=== PATIENT | male | born 1990 | race Caucasian/White ===

== ENCOUNTER 2021-04-10 10:25 | Emergency (ER) | payer OTHER, SELFPAY ==
[2021-04-10 10:36] VITALS: BP 138/84; PULSE 111; RESP 18; TEMP 36.9; O2SAT 95; BMI 28.5
[2021-04-10] MEDS: PROPARACAINE 0.5% OPHTH SOL 1 DROPS EYE-LEFT (10:44)
[2021-04-10] MEDS: FLUORESCEIN 1 MG STRIP EYE-BOTH (10:45)
--- NOTE | 2021-04-10 10:56 | ED_ITS ---
HPI - General Adult General Chief complaint: Eye Problems Stated complaint: left eye has something in it Time Seen by Provider: 04/10/21 10:35 Source: patient Mode of arrival: Ambulatory Limitations: no limitations History of Present Illness HPI narrative: Patient is a 31-year-old male. Does wear corrective lenses. No prior history of PRK or LASIk here for evaluation of irritation to his left eye. [place] was wearing his corrective lenses [place] had a sudden sensation of something in his left eye. He did try to irrigate it but still has irritation. No vision changes. He feels like there is something in the upper portion of his thigh. Related Data Previous Rx's Medication Instructions Recorded erythromycin 0.5 inch EYE-LEFT TID #3.5 g 04/10/21 Allergies Allergy/AdvReac Type Severity Reaction Status Date / Time amoxicillin [From Augmentin] Allergy Intermediate Hives Verified 04/10/21 10:36 cefaclor [From Ceclor] Allergy Intermediate Hives Verified 04/10/21 10:36 cefixime [From Suprax] Allergy Intermediate Hives Verified 04/10/21 10:36 clavulanic acid Allergy Intermediate Hives Verified 04/10/21 10:36 [From Augmentin] Review of Systems Constitutional Constitutional: Reports system reviewed and no additional complaints, except as documented Eyes Comments: Irritation and foreign body to left eye ENT Ears, Nose, Mouth, and Throat: Reports system reviewed and no additional complaints, except as documented Integumentary/Breasts Skin/Breast: Reports system reviewed and no additional complaints, except as documented Hematologic/Lymphatic Hematologic/Lymphatic: Reports system reviewed and no additional complaints, except as documented Patient History Medical History Healthy adult Social History Smoking Status: Never smoker Smoking Status: Never smoker alcohol intake frequency: 3 or more drinks per day Alcohol type: beer, wine and hard liquor Substance Use Type: does not use Exam Initial Vital Signs Initial Vital Signs: Vital Signs Temperature 98.4 F 04/10/21 10:36 Pulse Rate 111 H 04/10/21 10:36 Respiratory Rate 18 04/10/21 10:36 Blood Pressure 138/84 04/10/21 10:36 Pulse Oximetry 95 04/10/21 10:36 Const General: cooperative and comfortable Limitations: mental status not altered HENMT Head: normal to inspection and normocephalic Ears: hearing grossly normal bilaterally Nose: external nose normal Face and sinus: normal facial exam Mouth: oral mucosae normal Eyes Periorbital: periorbital findings normal Eyelids: eyelids normal Conjunctivae: conjunctivae normal Cornea: corneas normal and fluorescein used Pupils: PERRL Other: Right eyes unremarkable. No foreign bodies noted with eversion of his lower eyelid and upper eyelid. No photophobia, no consensual photophobia. Resp Effort & Inspection: normal respiratory effort Cardio Rate: regular rate Skin General: no rashes or lesions noted Lesions: no lesions Rashes: no rashes Extrem General: normal to inspection and capillary refill normal Psych Appearance: grossly normal and well kempt Course Orders Ordered: Discontinued Medications Fluorescein Sodium (Fluorescein 1 Mg Strip) 1 mg EYE-BOTH NOW ONE Stop: 04/10/21 10:36 Last Admin: 04/10/21 10:45 Dose: 1 mg Documented by: DEAN Proparacaine HCl (Proparacaine 0.5% Ophth Arleen) 1 drops EYE-LEFT NOW ONE Stop: 04/10/21 10:36 Last Admin: 04/10/21 10:44 Dose: 1 % Documented by: DEAN Vital Signs Vital signs: Vital Signs - 8 hr 04/10/21 10:36 Temperature 98.4 F Pulse Rate 111 H Respiratory Rate 18 Blood Pressure 138/84 Pulse Oximetry 95 Medical Decision Making [facility] Narrative Medical decision making narrative: Visual acuity is noted. There was no foreign body noted with fairly significant evaluation of his left eye. There is also no abrasion noted with the floor seen. Plan will be is to place him on magui thromycin ointment for both antibiotic coverage and also for soothing of his eye. We discussed return precautions and follow-up instructions. He expressed understanding and agreement. Discharge Plan Departure Patient Disposition: Home Clinical Impression: Irritation of left eye Activity Restrictions/Additional Instructions: Use the erythromycin ointment like we discussed. Contact your primary provider for follow-up. Return to the emergency department for any new or worsening symptoms Prescriptions: New erythromycin 5 mg/gram (0.5 %) ointment 0.5 inch EYE-LEFT TID Qty: 3.5 RF: 0
[2021-04-10] MEDS: ERYTHROMYCIN OPHTH 1 GM OINT 1 APPLIC EYE-LEFT (11:16)
== END 2021-04-10 11:19 | disposition home or self-care (01) ==
PROVIDERS: Emergency Provider Emergency Medicine
DX: H57.89 Other specified disorders of eye and adnexa (principal); Y99.0 Civilian activity done for income or pay
CPT/HCPCS: 99282